=== PATIENT | male | born 1990 | race African-American/Black ===

== ENCOUNTER 2017-08-25 13:32 | Emergency (ER) | payer SELFPAY ==
[~2017-08-25] VITALS: Ht 175.3 cm; Wt 73.0 kg
[2017-08-25 13:34] VITALS: BP 121/69; PULSE 103; RESP 13; TEMP 98.8; O2SAT 97
[2017-08-25 16:42] VITALS: BP 130/94; PULSE 83; RESP 20; TEMP 103.2; O2SAT 98
[2017-08-25] MEDS ORDERED: ACETAMINOPHEN 325 MG TAB PO ONE (17:00)
[2017-08-25] MEDS ORDERED: SODIUM CHLOR 0.9% 1000 ML INJ 1,000 ML IV ONE (17:15)
[2017-08-25] MEDS ORDERED: ONDANSETRON HCL 4 MG/2 ML VIAL IV PUSH ONE (17:15)
[2017-08-25] MEDS ORDERED: IBUPROFEN 800 MG TAB PO ONE (17:15)
--- NOTE | 2017-08-25 17:20 | PD ---
HPI Chief Complaint: Cold / Flu Symptoms Time Seen by Provider: 16:50 Travel History International Travel<30 days: No Contact w/Intl Traveler<30days: No Traveled to known affect area: No History of Present Illness HPI 26-year-old male presents to the emergency department for evaluation of flulike symptoms that started yesterday. He reports fever, body aches, cough, chest congestion, vomiting. He has no chronic medical problems and takes no prescribed medications. He states he last vomited yesterday morning, but has not eaten today. He took Tylenol earlier at 11 AM. No exacerbating or alleviating factors. Moderate severity. PFSH Past Medical History Medical History: Denies Significant Hx Tetanus Vaccination: > 5 Years Influenza Vaccination: No Past Surgical History Surgical History: No Previous Surgery Social History Alcohol Use: Yes (SOCIALLY) Tobacco Use: Yes Substance Use: No Allergies-Medications (Allergen,Severity, Reaction): Coded Allergies: No Known Allergies (Unverified , 08/25/17) Reported Meds & Prescriptions Reported Meds & Active Scripts Active No Active Prescriptions or Reported Medications Review of Systems Except as stated in HPI: all other systems reviewed are Neg Physical Exam Narrative GENERAL: Well-nourished, well-developed male patient, ambulatory and in no acute distress. Afebrile. SKIN: Focused skin assessment warm/dry. HEAD: Normocephalic. Atraumatic. ENT: Mucosa pink and moist. No erythema or exudates. No uvular edema. No uvular , palatal, or tonsillar deviation. Airway patent. Nasal turbinates appear normal without nasal blood, purulent drainage or septal hematoma. Bilateral tympanic membranes are clear without erythema or perforation. EYES: No scleral icterus. No injection or drainage. NECK: Supple, trachea midline. No JVD or lymphadenopathy. CARDIOVASCULAR: Regular rate and rhythm without murmurs, gallops, or rubs. RESPIRATORY: Breath sounds equal bilaterally. No accessory muscle use. Lung sounds are clear to auscultation. GASTROINTESTINAL: Abdomen soft, non-tender, nondistended. MUSCULOSKELETAL: No cyanosis, or edema. BACK: Nontender without obvious deformity. No CVA tenderness. Data Data Last Documented VS Vital Signs Date Time Temp Pulse Resp B/P (MAP) Pulse Ox O2 Delivery O2 Flow Rate FiO2 08/25/17 16:42 103.2 83 20 130/94 (106) 98 Room Air Orders Orders Acetaminophen (Tylenol) (08/25/17 17:00) Influenzae A/B Antigen (08/25/17 16:48) Complete Blood Count With Diff (08/25/17 17:09) Comprehensive Metabolic Panel (08/25/17 17:09) Urinalysis - C+S If Indicated (08/25/17 17:09) Chest, Single Ap (08/25/17 ) Ibuprofen (Motrin) (08/25/17 17:15) Sodium Chlor 0.9% 1000 Ml Inj (Ns 1000 M (08/25/17 17:15) Ondansetron Inj (Zofran Inj) (08/25/17 17:15) Labs Laboratory Tests Test 08/25/17 17:45 White Blood Count 6.5 TH/MM3 Red Blood Count 4.80 MIL/MM3 Hemoglobin 13.4 GM/DL Hematocrit 39.5 % Mean Corpuscular Volume 82.1 FL Mean Corpuscular Hemoglobin 27.8 PG Mean Corpuscular Hemoglobin Concent 33.9 % Red Cell Distribution Width 12.9 % Platelet Count 148 TH/MM3 Mean Platelet Volume 9.2 FL Neutrophils (%) (Auto) 80.5 % Lymphocytes (%) (Auto) 12.4 % Monocytes (%) (Auto) 6.5 % Eosinophils (%) (Auto) 0.1 % Basophils (%) (Auto) 0.5 % Neutrophils # (Auto) 5.3 TH/MM3 Lymphocytes # (Auto) 0.8 TH/MM3 Monocytes # (Auto) 0.4 TH/MM3 Eosinophils # (Auto) 0.0 TH/MM3 Basophils # (Auto) 0.0 TH/MM3 CBC Comment DIFF FINAL Differential Comment Urine Color YELLOW Urine Turbidity CLEAR Urine pH 6.5 Urine Specific [place] 1.027 Urine Protein 30 mg/dL Urine Glucose (UA) NEG mg/dL Urine Ketones TRACE mg/dL Urine Occult Blood NEG Urine Nitrite NEG Urine Bilirubin NEG Urine Urobilinogen GREATER THAN 12.0 MG/DL Urine Leukocyte Esterase NEG Urine RBC LESS THAN 1 /hpf Urine WBC 1 /hpf Urine Mucus MOD /lpf Microscopic Urinalysis Comment CULT NOT INDICATED Blood Urea Nitrogen 11 MG/DL Creatinine 1.24 MG/DL Random Glucose 98 MG/DL Albumin 4.1 GM/DL Calcium Level 8.8 MG/DL Aspartate Amino Transf (AST/SGOT) 18 U/L Sodium Level 139 MEQ/L Potassium Level 3.2 MEQ/L Chloride Level 103 MEQ/L Carbon Dioxide Level 26.3 MEQ/L Anion Gap 10 MEQ/L Estimat Glomerular Filtration Rate 84 ML/MIN MDM Medical Decision Making Medical Screen Exam Complete: Yes Emergency Medical Condition: Yes Medical Record Reviewed: Yes Interpretation(s) Last Impressions Chest X-Ray 08/25/17 0000 Signed Impressions: Service Date/Time: Friday, August 25, 2017 17:23 - CONCLUSION: Normal one view chest x-ray. Mu Cordova MD Differential Diagnosis influenza vs. viral syndrome vs. pneumonia Narrative Course 26 year old male presents to the emergency department for evaluation of flu- like symptoms. IV access is established. CBC, CMP, UA, influenza, chest x-ray are ordered and pending. Patient is given NS 1 L IV bolus, ibuprofen 800 mg PO , Tylenol 650 mg PO, Zofran 4 mg PO. CBC shows no acute abnormality. CMP shows hypokalemia at 3.2. CXR shows no acute abnormality. Influenza swab is positive for flu a. UA is negative for infection. Patient is given potassium 20 mg once by mouth. Patient will be discharged prescription for Tamiflu. He is instructed to take Tylenol/Motrin [id number], rest, drink plenty of fluids. The patient was discharged in stable condition with instructions, including return instructions and follow up instructions. Diagnosis Primary Impression: Influenza A Referrals: Primary Care Physician call for appointment Patient Instructions: General Instructions, Influenza (ED) Departure Forms: Tests/Procedures, Work Release Enter return to work date: Aug 28, 2017 Additional Instructions: Take Tamiflu as directed until gone. Tylenol/Motrin over the counter as needed for body aches/fever. Rest. Drink plenty of fluids. Follow-up with your primary care physician. Return to the emergency department for any acute worsening of symptoms. Med/Other Pt SpecificInfo: Prescription(s) given Scripts Ondansetron Odt (Ondansetron Odt) 4 Mg Tab 4 MG SL Q6HR Y for Nausea/Vomiting, #12 TAB 0 Refills Prov: Shirley Whittaker 08/25/17 Oseltamivir (Tamiflu) 75 Mg Cap 75 MG PO BID for Mgmt Viral Infection for 5 Days, #10 CAP 0 Refills Prov: Shirley Whittaker 08/25/17 Disposition: 01 DISCHARGE HOME Condition: Stable Shirley Whittaker Aug 25, 2017 17:20
--- NOTE | 2017-08-25 17:38 | RADRPT ---
EXAM DATE/TIME: 08/25/2017 17:23 [facility] COMPARISON: No previous studies available for comparison. INDICATIONS : Fever, chest pain and shortness of breath. MEDICAL HISTORY : None. SURGICAL HISTORY : None. ENCOUNTER: Initial ACUITY: 4 - 6 days PAIN SCORE: 3/10 LOCATION: Bilateral chest FINDINGS: A single view of the chest demonstrates the lungs to be symmetrically aerated without evidence of mas s, infiltrate or effusion. The cardiomediastinal contours are unremarkable. Osseous structures are intact. CONCLUSION: Normal one view chest x-ray. Mu Cordova MD on August 25, 2017 at 17:36 Board Certified Radiologist. This report was verified electronically.
[2017-08-25 18:26] LABS: BILIRUBIN, URINE NEG (NEG); BLOOD, URINE NEG (NEG); GLUCOSE,URINE NEG (NEG); KETONE, URINE TRACE mg/dL (NEG); MUCUS URINE MOD /lpf (OCC); NITRITE,URINE NEG (NEG); PH, URINE 6.5 (5.0-8.5); URINE COLOR YELLOW (YELLW/STRAW); URINE LEUKOCYTE ESTERASE NEG (NEG)
[2017-08-25 18:39] LABS: AUTOMATED NEUTROPHIL # 5.3 TH/MM3 (1.8-7.7); BASOPHIL % 0.5 % (0.0-2.0); EOSINOPHIL % 0.1 % (0.0-4.0); HEMATOCRIT 39.5 % (39.0-51.0); HEMOGLOBIN 13.4 GM/DL (13.0-17.0); LYMPH % 12.4 % (9.0-44.0); LYMPHOCYTE # 0.8 TH/MM3 (1.0-4.8); MEAN CELL VOLUME 82.1 FL (80.0-100.0); MEAN CORPUSCULAR HEMOGLOBIN 27.8 PG (27.0-34.0); MEAN CORPUSCULAR HGB CONC 33.9 % (32.0-36.0); MEAN PLATELET VOLUME 9.2 FL (7.0-11.0); MONO % 6.5 % (0.0-8.0); MONOCYTE # 0.4 TH/MM3 (0-0.9); NEUT % 80.5 % (16.0-70.0); PLATELET COUNT 148 TH/MM3 (150-450); RED CELL DISTRIBUTION WIDTH 12.9 % (11.6-17.2); WHITE BLOOD COUNT 6.5 TH/MM3 (4.0-11.0)
[2017-08-25 18:46] LABS: ALBUMIN 4.1 GM/DL (3.4-5.0); AST (GOT) 18 U/L (15-37); BICARBONATE 26.3 MEQ/L (21.0-32.0); BLOOD UREA NITROGEN 11 MG/DL (7-18); CALCIUM 8.8 MG/DL (8.5-10.1); CHLORIDE 103 MEQ/L (98-107); CREATININE 1.24 MG/DL (0.60-1.30); GLOMERULAR FILTRATION RATE 84 ML/MIN (>89); GLUCOSE,RANDOM 98 MG/DL (74-106); SODIUM (NA) 139 MEQ/L (136-145)
[2017-08-25] MEDS ORDERED: OSEL75 PO (18:49)
[2017-08-25 18:50] VITALS: BP 144/68; PULSE 74; RESP 18; TEMP 99.7; O2SAT 99
[2017-08-25 18:50] LABS: ALKALINE PHOSPHATASE 52 U/L (45-117); ALT (GPT) 19 U/L (12-78); TOTAL BILIRUBIN ADULT 1.3 MG/DL (0.2-1.0); TOTAL PROTEIN 7.3 GM/DL (6.4-8.2)
[2017-08-25] MEDS ORDERED: ONDA4TAB7 SL (18:54)
[2017-08-25] MEDS ORDERED: POTASSIUM CHLORIDE 20 MEQ CONTROLLED RELEASE TAB PO ONE (19:00)
== END 2017-08-25 19:15 | disposition home or self-care (01) ==
LOC: NEPD 13:32
DX: J10.1 Influenza due to other identified influenza virus with other respiratory manifestations (principal); Z72.0 Tobacco use
CPT/HCPCS: 71045; 80053; 81001; 85025; 87804; 99284; J2405; J7030